=== PATIENT | female | born 1990 | race Caucasian/White ===

== ENCOUNTER 2017-12-16 18:26 | Inpatient (IN) ==
[2017-12-16] MEDS ORDERED: Acetaminophen 325 MG Tablet PO ONE (18:37)
[2017-12-16] MEDS ORDERED: Sod Chloride 0.9% Inj 800 ML IV.SIG SCH (18:45)
[2017-12-16 19:00] LABS: Baso % (Auto) 0.1 % (0.0-2.0); Eos % (Auto) 0.1 % (0.0-4.0); Hematocrit 37.8 % (35.0-46.0); Hemoglobin 12.8 gm/dL (11.6-15.3); Lymph % (Auto) 4.2 % (9.0-44.0); Mean Corpuscular HGB Conc 33.8 % (32.0-36.0); Mean Corpuscular Hemoglobin 28.6 pg (27.0-34.0); Mean Corpuscular Volume 84.5 fL (80.0-100.0); Mean Platelet Volume 8.4 fL (7.0-11.0); Mono # (Auto) 1.8 th/mm3 (0.0-0.9); Mono % (Auto) 7.6 % (0.0-8.0); Neut # (Auto) 20.5 th/mm3 (1.8-7.7); Platelet Count 225 th/mm3 (150-450); Red Blood Count 4.48 mil/mm3 (4.00-5.30); Red Cell Distribution Width 12.9 % (11.6-17.2); White Blood Count 23.3 th/mm3 (4.0-11.0)
[2017-12-16] MEDS: Sod Chloride 0.9% Inj 1,000 ML IV.SIG SCH (19:00)
--- NOTE | 2017-12-16 19:00 | XR ---
EXAM DATE: 12/16/2017 6:57 PM EDT AGE/SEX: 89 years / Female INDICATIONS: Fever, syncopal episode today CLINICAL DATA: This is the patient's initial encounter. Patient reports that signs and symptoms have been present for 1 day and indicates a pain score of Nonresponsive. MEDICAL/SURGICAL HISTORY: None. None. COMPARISON: No prior exams available for comparison. FINDINGS: Lungs are under aerated with minimal bibasilar parenchymal changes.. The cardiomediastinal contours are unremarkable. Osseous structures are intact. CONCLUSION: Under aerated without obvious consolidation or infiltrate. Electronically signed by: Brayan Murrieta MD 12/16/2017 6:58 PM EDT
--- NOTE | 2017-12-16 19:15 | ED ---
HPI General Chief complaint: Fever Stated complaint: Evac/Ams Time Seen by Provider: 12/16/17 18:28 Source: patient, family, EMS and RN notes reviewed Mode of arrival: EMS Limitations: altered mental status (confusion) History of Present Illness HPI narrative: 28yF presenting with fever and confusion. The patient's mother states that the patient has been complaining of "shaking chills" since yesterday ; she has been taking naproxen with some relief of symptoms. She told her mother yesterday that she was having abdominal pain but did not specify where in her abdomen was painful. The patient's father brought her to an urgent care center today, where she was noted to be confused and sleepy, and was sent by EMS to the ED for further eval. The patient is oriented x 3 but appears confused , denies any complaints currently. Related Data Home Medications Medication Instructions Recorded Confirmed No Known Home Medications 12/16/17 12/16/17 Allergies Allergy/AdvReac Type Severity Reaction Status Date / Time No Known Allergies Allergy Unverified 12/16/17 18:37 Review of Systems ROS Unobtainable ROS Unobtainable: unobtainable due to mental status (confusion) PMFSH History History Provided By: Patient Medical History Medical History Patient denies medical problems (Acute) Surgical History Surgical History No significant past surgical history (Acute) Family History Family History Other Family history normal Social History Social History Substance History: No History of Abuse Smoking Status: Never smoker How Often Do You Have a Drink Containing Alcohol: Never Recent Travel in [place] within the Last 8 Weeks: No Recent Out of Country Travel within the Last 8 Weeks: No Immunization History Tetanus Immunization: Unsure Exam Const Other: Appears confused, no acute distress HENIN Head: normocephalic and atraumatic Face and sinus: normal facial exam Other: No tonsillar hypertrophy or exudate No trismus or drooling Eyes General: appearance normal, both eyes and all related structures Other: Pupils 3 mm and reactive bilaterally Neck Other: No cervical adenopathy, able to touch chin to chest without difficulty Chest Chest: normal inspection of the chest Resp Effort & Inspection: normal respiratory effort Auscultation: no rhonchi and no wheezes Other: Lungs clear to auscultation bilaterally Cardio Rate: tachycardic Rhythm: regular rhythm GI Inspection: non-distended Palpation: soft and nontender Skin Other: Patient completely undressed and examined, no rashes or lesions noted Neuro Other: Sleepy but easily arousable to voice, oriented x 3, answers questions slowly but appropriately Motor strength 5/5 and sensation intact throughout Speech clear and fluent Appears confused Course Initial Documented Vital Signs Temperature 102.6 F H 12/16/17 18:29 Pulse Rate 129 H 12/16/17 18:29 Respiratory Rate 18 12/16/17 18:29 Blood Pressure 120/75 12/16/17 18:29 Pulse Oximetry 99 12/16/17 18:29 Last Documented Vital Signs Temperature 102.9 F H 12/17/17 12:56 Pulse Rate 118 H 12/17/17 12:56 Respiratory Rate 16 12/17/17 12:56 Blood Pressure 101/64 12/17/17 12:00 Pulse Oximetry 99 12/17/17 08:00 Sign Out Sign Out Data: Patient Sign Out occurred on 12/16/17 at 19:33. Patient's care was discussed, and care was transferred from Annie Villanueva DO to Franky Gordon DO. Sign Out Comment: 28yF presenting with sepsis of uncertain etiology; pending labs and CT scans Last updated by Annie Villanueva DO at 12/16/17 19:24 Medical Decision Making MDM Narrative Medical decision making narrative: Assessment: 28yF presenting with fever and confusion Plan: EKG and monitor IV fluids Sepsis workup (labs, cultures, lactate) UA and culture, UCG CXR CTH and abd/pelvis Unremarkable CT abdomen and pelvis. White count of 23.3. Creatinine 1.25. UA revealed signs of urinary tract infection the patient has bilateral CVA tenderness. She denies urinary symptoms. Findings are suggestive of pyelonephritis. Fever improved. She is hemodynamically stable with a blood pressure 120/75. Still tachycardic. Fluids are given. Not appearing septic. 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 POC Test Results POC Urine Results: Negative Lab Data Result diagrams: 12/17/17 03:40 12/17/17 03:40 Lab Results 12/16/17 12/16/17 12/16/17 Range/Units 18:40 18:40 18:40 WBC 23.3 H (4.0-11.0) th/mm3 RBC 4.48 (4.00-5.30) mil/mm3 Hgb 12.8 (11.6-15.3) gm/dL Hct 37.8 (35.0-46.0) % MCV 84.5 (80.0-100.0) fL MCH 28.6 (27.0-34.0) pg MCHC 33.8 (32.0-36.0) % RDW 12.9 (11.6-17.2) % Plt Count 225 (150-450) th/mm3 MPV 8.4 (7.0-11.0) fL Neut % (Auto) 88.0 H (16.0-70.0) % Lymph % (Auto) 4.2 L (9.0-44.0) % Rooks % (Auto) 7.6 (0.0-8.0) % Eos % (Auto) 0.1 (0.0-4.0) % Baso % (Auto) 0.1 (0.0-2.0) % Neut # (Auto) 20.5 H (1.8-7.7) th/mm3 Lymph # (Auto) 1.0 (1.0-4.8) th/mm3 Rooks # (Auto) 1.8 H (0.0-0.9) th/mm3 Eos # (Auto) 0.0 (0.0-0.4) th/mm3 Baso # (Auto) 0.0 (0.0-0.2) th/mm3 WBC Differential . Differential Comment Auto diff final Sodium 140 (136-145) meq/L Potassium 3.5 (3.5-5.1) meq/L Chloride 110 H (98-107) meq/L Carbon Dioxide 21.3 (21.0-32.0) meq/L Anion Gap 9 (5-15) meq/L BUN 17 (7-18) mg/dL Creatinine 1.25 H (0.50-1.00) mg/dL Estimated GFR 37 L (>89) mL/min POC Glucose (68-110) mg/dl Random Glucose 139 H (74-106) mg/dL Lactic Acid 1.2 (0.4-2.0) mmol/L Calcium 8.1 L (8.5-10.1) mg/dL Prot Corrected Calcium (8.5-10.1) mg/dL Magnesium 1.9 (1.5-2.5) mg/dL Total Bilirubin 0.3 (0.2-1.0) mg/dL AST 22 (15-37) U/L ALT 22 (10-53) U/L Alkaline Phosphatase 68 (45-117) U/L Total Protein 7.5 (6.4-8.2) g/dL Albumin 3.2 L (3.4-5.0) g/dL Lipase 79 (73-393) U/L Urine Color (Yellw/Straw) Urine Clarity (Clear) Urine pH (5.0-8.5) Ur Specific [place] (1.002-1.035) Urine Protein (Neg-Trace) mg/dL Urine Glucose (UA) (Negative) mg/dL Urine Ketones (Negative) mg/dL Urine Occult Blood (Negative) Urine Nitrate (Negative) Urine Bilirubin (Negative) Urine Urobilinogen (Less than 2) mg/dL Ur Leukocyte Esterase (Negative) Urine RBC (0-3) /hpf Urine WBC (0-5) /hpf Urine WBC Clumps (None) Ur Squamous Epith Cells (0-5) /hpf Urine Bacteria (None) /hpf Urine Mucus (Occasional) /lpf Micro UA Comment Urine Culture Comments 12/16/17 12/16/17 12/17/17 Range/Units 18:45 18:51 03:40 WBC 17.0 H (4.0-11.0) th/mm3 RBC 3.75 L (4.00-5.30) mil/mm3 Hgb 10.6 L D (11.6-15.3) gm/dL Hct 32.6 L (35.0-46.0) % MCV 87.0 (80.0-100.0) fL MCH 28.4 (27.0-34.0) pg MCHC 32.6 (32.0-36.0) % RDW 13.0 (11.6-17.2) % Plt Count 172 (150-450) th/mm3 MPV 8.3 (7.0-11.0) fL Neut % (Auto) 77.9 H (16.0-70.0) % Lymph % (Auto) 14.1 (9.0-44.0) % Rooks % (Auto) 7.8 (0.0-8.0) % Eos % (Auto) 0.0 (0.0-4.0) % Baso % (Auto) 0.2 (0.0-2.0) % Neut # (Auto) 13.3 H (1.8-7.7) th/mm3 Lymph # (Auto) 2.4 (1.0-4.8) th/mm3 Rooks # (Auto) 1.3 H (0.0-0.9) th/mm3 Eos # (Auto) 0.0 (0.0-0.4) th/mm3 Baso # (Auto) 0.0 (0.0-0.2) th/mm3 WBC Differential . Differential Comment Auto diff final Sodium (136-145) meq/L Potassium (3.5-5.1) meq/L Chloride (98-107) meq/L Carbon Dioxide (21.0-32.0) meq/L Anion Gap (5-15) meq/L BUN (7-18) mg/dL Creatinine (0.50-1.00) mg/dL Estimated GFR (>89) mL/min POC Glucose 129 H (68-110) mg/dl Random Glucose (74-106) mg/dL Lactic Acid (0.4-2.0) mmol/L Calcium (8.5-10.1) mg/dL Prot Corrected Calcium (8.5-10.1) mg/dL Magnesium (1.5-2.5) mg/dL Total Bilirubin (0.2-1.0) mg/dL AST (15-37) U/L ALT (10-53) U/L Alkaline Phosphatase (45-117) U/L Total Protein (6.4-8.2) g/dL Albumin (3.4-5.0) g/dL Lipase (73-393) U/L Urine Color Yellow (Yellw/Straw) Urine Clarity Cloudy H (Clear) Urine pH 5.0 (5.0-8.5) Ur Specific [place] 1.016 (1.002-1.035) Urine Protein 100 H (Neg-Trace) mg/dL Urine Glucose (UA) Negative (Negative) mg/dL Urine Ketones Negative (Negative) mg/dL Urine Occult Blood Moderate H (Negative) Urine Nitrate Positive H (Negative) Urine Bilirubin Negative (Negative) Urine Urobilinogen 2.0 H (Less than 2) mg/dL Ur Leukocyte Esterase Moderate H (Negative) Urine RBC 2 (0-3) /hpf Urine WBC 110 H (0-5) /hpf Urine WBC Clumps Rare H (None) Ur Squamous Epith Cells 1 (0-5) /hpf Urine Bacteria Many H (None) /hpf Urine Mucus Few H (Occasional) /lpf Micro UA Comment Cath-culture ind Urine Culture Comments Cath-cult indicated 12/17/17 Range/Units 03:40 WBC (4.0-11.0) th/mm3 RBC (4.00-5.30) mil/mm3 Hgb (11.6-15.3) gm/dL Hct (35.0-46.0) % MCV (80.0-100.0) fL MCH (27.0-34.0) pg MCHC (32.0-36.0) % RDW (11.6-17.2) % Plt Count (150-450) th/mm3 MPV (7.0-11.0) fL Neut % (Auto) (16.0-70.0) % Lymph % (Auto) (9.0-44.0) % Rooks % (Auto) (0.0-8.0) % Eos % (Auto) (0.0-4.0) % Baso % (Auto) (0.0-2.0) % Neut # (Auto) (1.8-7.7) th/mm3 Lymph # (Auto) (1.0-4.8) th/mm3 Rooks # (Auto) (0.0-0.9) th/mm3 Eos # (Auto) (0.0-0.4) th/mm3 Baso # (Auto) (0.0-0.2) th/mm3 WBC Differential Differential Comment Sodium 144 (136-145) meq/L Potassium 3.7 (3.5-5.1) meq/L Chloride 113 H (98-107) meq/L Carbon Dioxide 22.2 (21.0-32.0) meq/L Anion Gap 9 (5-15) meq/L BUN 11 (7-18) mg/dL Creatinine 0.82 (0.50-1.00) mg/dL Estimated GFR 83 L (>89) mL/min POC Glucose (68-110) mg/dl Random Glucose 129 H (74-106) mg/dL Lactic Acid (0.4-2.0) mmol/L Calcium 7.0 L* D (8.5-10.1) mg/dL Prot Corrected Calcium 7.6 L (8.5-10.1) mg/dL Magnesium (1.5-2.5) mg/dL Total Bilirubin (0.2-1.0) mg/dL AST (15-37) U/L ALT (10-53) U/L Alkaline Phosphatase (45-117) U/L Total Protein 6.0 L D (6.4-8.2) g/dL Albumin (3.4-5.0) g/dL Lipase (73-393) U/L Urine Color (Yellw/Straw) Urine Clarity (Clear) Urine pH (5.0-8.5) Ur Specific [place] (1.002-1.035) Urine Protein (Neg-Trace) mg/dL Urine Glucose (UA) (Negative) mg/dL Urine Ketones (Negative) mg/dL Urine Occult Blood (Negative) Urine Nitrate (Negative) Urine Bilirubin (Negative) Urine Urobilinogen (Less than 2) mg/dL Ur Leukocyte Esterase (Negative) Urine RBC (0-3) /hpf Urine WBC (0-5) /hpf Urine WBC Clumps (None) Ur Squamous Epith Cells (0-5) /hpf Urine Bacteria (None) /hpf Urine Mucus (Occasional) /lpf Micro UA Comment Urine Culture Comments Imaging Data Radiologist's impression: Chest X-Ray 12/16/17 18:37 CONCLUSION: Under aerated without obvious consolidation or infiltrate. Head CT 12/16/17 18:37 CONCLUSION: 1. Negative for acute process. 2. Inflammatory process such as encephalitis and meningitis cannot be excluded. . Abdomen/Pelvis CT 12/16/17 19:05 CONCLUSION: 1. Gallstones in a benign-appearing gallbladder 2. There is no renal stone or obstruction 3. Do not see inflammatory change of the abdomen 4. Lack of intravenous contrast makes detection of subtle inflammatory changes including pyelonephritis very difficult. ECG Data Attestation: I personally reviewed and interpreted this ECG as follows: Interpretation: Rate: 140 BPM Rhythm: Sinus [place]: Normal Intervals: Normal intervals, no blocks, QTc 365 ms Q waves: III T waves: Inverted in III ST segments: No elevations or depressions Impression: Sinus tachycardia, no previous EKG available for comparison. Discharge Plan Discharge Disposition Patient Disposition: 30 Still Patient Discharge Condition Condition: Good Discharge Details Diagnosis: Pyelonephritis, Toxic metabolic encephalopathy, Sepsis Physicians Team ED Provider: Franky Gordon Primary Care Provider: UNKNOWN, Attending Provider: Roni Melchor Status ED Status: Left Department Discharge Information Discharge Date/Time: 12/16/17 21:23
[2017-12-16 19:25] LABS: Alanine Aminotransferase 22 U/L (10-53); Albumin 3.2 g/dL (3.4-5.0); Anion Gap 9 meq/L (5-15); Aspartate Aminotransferase 22 U/L (15-37); Blood Urea Nitrogen 17 mg/dL (7-18); Calcium 8.1 mg/dL (8.5-10.1); Carbon Dioxide 21.3 meq/L (21.0-32.0); Chloride 110 meq/L (98-107); Glomerular Filtration Rate 37 mL/min (>89); Glucose,Random 139 mg/dL (74-106); Lipase 79 U/L (73-393); Magnesium 1.9 mg/dL (1.5-2.5); Potassium 3.5 meq/L (3.5-5.1); Sodium 140 meq/L (136-145)
[2017-12-16 19:28] LABS: Alkaline Phosphatase 68 U/L (45-117); Total Protein 7.5 g/dL (6.4-8.2)
[2017-12-16 19:30] LABS: Bacteria,Urine Many /hpf; Bilirubin,Urine Negative (Negative); Clarity,Urine Cloudy (Clear); Color,Urine Yellow (Yellw/Straw); Glucose,Urine (UA) Negative (Negative); Leukocyte Esterase,Urine Moderate (Negative); Mucus,Urine Few /lpf (Occasional); Nitrite,Urine Positive (Negative); Specific Gravity,Urine 1.016 (1.002-1.035); Squamous Epithelial Cell,Urine 1 /hpf (0-5)
--- NOTE | 2017-12-16 19:33 | CT ---
EXAM DATE: 12/16/2017 7:31 PM EDT AGE/SEX: 89 years / Female INDICATIONS: Altered mental status. Fever. CLINICAL DATA: This is the patient's initial encounter. Patient reports that signs and symptoms have been present for 1 day and indicates a pain score of 0/10. MEDICAL/SURGICAL HISTORY: None. None. RADIATION DOSE: 56.35 CTDI (mGy) COMPARISON: No prior exams available for comparison. TECHNIQUE: CT of the head without contrast. Using automated exposure control and adjustment of the mA and/or kV according to patient size, radiation dose was kept as low as reasonably achievable to ob tain optimal diagnostic quality images. DICOM format image data is available electronically for revi ew and comparison. FINDINGS: Cerebrum: The ventricles are normal for age. No evidence of midline shift, mass lesion, hemorrhage or acute infarction. No extraaxial fluid collections are seen. Posterior Fossa: The cerebellum and brainstem are intact. The 4th ventricle is midline. The cerebe llopontine angle is unremarkable. Extracranial: The visualized portion of the orbits is intact. Skull: The calvaria is intact. No evidence of skull fracture. CONCLUSION: 1. Negative for acute process. 2. Inflammatory process such as encephalitis and meningitis cannot be excluded. . Electronically signed by: Brayan Murrieta MD 12/16/2017 7:32 PM EDT
--- NOTE | 2017-12-16 19:38 | CT ---
EXAM DATE: 12/16/2017 7:34 PM EDT AGE/SEX: 89 years / Female INDICATIONS: Diffuse abdominal pain and fever. CLINICAL DATA: This is the patient's initial encounter. Patient reports that signs and symptoms have been present for 1 day and indicates a pain score of 4/10. MEDICAL/SURGICAL HISTORY: None. None. RADIATION DOSE: 6.64 CTDI (mGy) COMPARISON: No prior exams available for comparison. TECHNIQUE: Multiple contiguous axial images were obtained through the abdomen. Images were obtained using multiple row detector helical technique. Using automated exposure control and adjustment of the mA and/or kV according to patient size, radiation dose was kept as low as reasonably achievable to o btain optimal diagnostic quality images. DICOM format image data is available electronically for rev iew and comparison. FINDINGS: Lower Lungs: The visualized lower lungs are clear. Liver: The liver has a homogeneous density without space-occupying lesion. There is no dilation of th e biliary tree. Gallstones in a benign-appearing gallbladder without evidence for acute cholecystitis . Spleen: Homogeneous density without enlargement. Pancreas: Unremarkable without mass or calcification. Kidneys: Normal in size and shape. No evidence of mass or hydronephrosis. Adrenal Glands: Unremarkable. Aorta: The aorta and proximal iliac vessels are grossly unremarkable without aneurysmal dilation. Bowel/Mesentery: There are no inflammatory changes in the mesentery. Minimal diverticuli sigmoid col on without diverticulitis. Abdominal Wall: Intact. Retroperitoneum: No evidence of adenopathy in the retrocrural, para-aortic, or deep pelvic regions. Bladder: Contours are smooth. Reproductive Organs: No abnormal masses or calcifications seen. Inguinal: The inguinal region is unremarkable without evidence of adenopathy. Bony Structures: Degenerative changes in the lower lumbar spine and both SI joints. CONCLUSION: 1. Gallstones in a benign-appearing gallbladder 2. There is no renal stone or obstruction 3. Do not see inflammatory change of the abdomen 4. Lack of intravenous contrast makes detection of subtle inflammatory changes including pyelonephri tis very difficult. Electronically signed by: Brayan Murrieta MD 12/16/2017 7:36 PM EDT
[2017-12-16] MEDS: Sod Chloride 0.9% Inj 1,000 ML IV.CONT SCH (20:52)
--- NOTE | 2017-12-16 21:30 | P.HPIM ---
History of Present Illness Primary Care Physician: UNKNOWN History of Present Illness: 28 y/o female with a no medical history presented to the ED with complaints of lower abdominal pain and lethargy. Mom is at bedside who is a CVICU Nurse here at [facility]. Patient states she has been having fevers and chills for 2 days and today she just became more lethargic. She complains of sharp lower abdominal pain with radiation to her back, no nausea or vomiting noted. Denies dysuria. Still feverish and having chills on exam. Inpatient Certification: I certify that the inpatient services were ordered in accordance with Medicare regulations governing the order. This includes certification that hospital inpatient services are reasonable and necessary and in the case of services not specified as inpatient-only under 42 CFR 419.22(n), that they are appropriately provided as inpatient services in accordance to with the 2-midnight benchmark under 43 CFR 412.3(e) Estimated Total Length of Stay (Days): 2 Plans for Post Hospital Care: Home Review of Systems All other systems reviewed negative except as stated in HPI [facility] - History History Provided By: Patient - Medical History Medical History: Medical History (Last Updated 12/16/17 @ 21:23 by LAY Coronel) No significant past surgical history Patient denies medical problems - Surgical History Surgical History: Surgical History (Last Updated 12/16/17 @ 21:23 by LAY Coronel) No significant past surgical history - Family History Family History: Family History (Last Updated 12/16/17 @ 21:23 by LAY Coronel) Other Family history normal - Tobacco History Smoking Status: Never smoker - Alcohol History How Often Do You Have a Drink Containing Alcohol: Never - Substance Use History Substance History: No History of Abuse - Travel History Recent Travel in the [place] Within the Last 8 Weeks: No Recent Travel Out of the Country Within the Last 8 Weeks: No - Immunization History Tetanus Immunization: Unsure Medications and Allergies Active Medications: Active Medications Acetaminophen (Tylenol) 650 mg PO Q4H PRN PRN Reason: Temp > 100.4 Sodium Chloride (Ns Inj) 1,000 mls @ 0 mls/hr IV.SIG .Q0M [facility] Last Admin: 12/16/17 19:00 Dose: 999 mls/hr Sodium Chloride (Ns Inj) 800 mls @ 0 mls/hr IV.SIG .Q0M CORRINE Last Admin: 12/16/17 19:03 Dose: 999 mls/hr Ceftriaxone Sodium 1,000 mg/ (Sodium Chloride) 100 mls @ 200 mls/hr IV.SIG Q24H [facility] Sodium Chloride (Ns Inj) 1,000 mls @ 100 mls/hr IV.CONT .Q10H [facility]RINE Last Admin: 12/16/17 20:52 Dose: 100 mls/hr Ondansetron HCl (Zofran Inj) 4 mg IV.PUSH Q6H PRN PRN Reason: NAUSEA OR VOMITING Allergies Allergy/AdvReac Type Severity Reaction Status Date / Time No Known Allergies Allergy Unverified 12/16/17 18:37 Home Medications Medication Instructions Recorded Confirmed Type No Known Home Medications 12/16/17 12/16/17 History Exam Vital signs: Vital Signs 12/16/17 18:29 12/16/17 18:47 12/16/17 19:55 Temperature 102.6 F H 100.0 F H Pulse Rate 129 H 123 H Respiratory Rate 18 16 Blood Pressure 120/75 114/68 Pulse Oximetry 99 100 99 Intake & Output 12/16/17 12/16/17 12/17/17 06:59 18:59 06:59 Weight 58.967 kg Narrative: GENERAL: This is a well-nourished, well-developed patient, who appears sleepy. SKIN: Warm, dry, intact, no ecchymosis or open lesions EYES: Pupils equal round and reactive, no scleral edema or drainage CARDIOVASCULAR: Regular rate and rhythm without murmurs, gallops, or rubs. RESPIRATORY: Clear to auscultation. Breath sounds equal bilaterally. No wheezes , rales, or rhonchi. GASTROINTESTINAL: Abdomen soft, lower abdominal tenderness, nondistended. Normal active bowel sounds positive CVA tenderness left greater than right MUSCULOSKELETAL: Extremities without clubbing, cyanosis, or edema. NEURO: Sleepy & Oriented x4 to person, place, time, situation. Moves all ext x4 Results - Labs CBC & Chem 7: 12/16/17 18:40 12/16/17 18:40 Labs: Short CBC 12/16/17 Range/Units 18:40 WBC 23.3 H (4.0-11.0) th/mm3 Hgb 12.8 (11.6-15.3) gm/dL Hct 37.8 (35.0-46.0) % Plt Count 225 (150-450) th/mm3 BMP 12/16/17 18:40 Sodium 140 Potassium 3.5 Chloride 110 H Carbon Dioxide 21.3 BUN 17 Creatinine 1.25 H Calcium 8.1 L Liver Function 12/16/17 Range/Units 18:40 Total Bilirubin 0.3 (0.2-1.0) mg/dL AST 22 (15-37) U/L ALT 22 (10-53) U/L Alkaline Phosphatase 68 (45-117) U/L Albumin 3.2 L (3.4-5.0) g/dL Urine 12/16/17 Range/Units 18:45 Urine Color Yellow (Yellw/Straw) Urine Clarity Cloudy H (Clear) Urine pH 5.0 (5.0-8.5) Ur Specific [place] 1.016 (1.002-1.035) Urine Protein 100 H (Neg-Trace) mg/dL Urine Glucose (UA) Negative (Negative) mg/dL - Imaging Impressions Chest X-Ray 12/16/17 18:37 CONCLUSION: Under aerated without obvious consolidation or infiltrate. Head CT 12/16/17 18:37 CONCLUSION: 1. Negative for acute process. 2. Inflammatory process such as encephalitis and meningitis cannot be excluded. . Abdomen/Pelvis CT 12/16/17 19:05 CONCLUSION: 1. Gallstones in a benign-appearing gallbladder 2. There is no renal stone or obstruction 3. Do not see inflammatory change of the abdomen 4. Lack of intravenous contrast makes detection of subtle inflammatory changes including pyelonephritis very difficult. Caprini VTE Risk Assessment Caprini VTE Risk Assessment: No/Low Risk (score <= 1) Caprini Risk Assessment Model: Point Value = 1 Point Value = 2 Point Value = 3 Point Value = 5 Age 41-60 Minor surgery BMI > 25 kg/m2 Swollen legs Varicose veins or History of unexplained or recurrent spontaneous Oral contraceptives or hormone replacement Sepsis (< 1 month) Serious lung disease, including pneumonia (< 1 month) Abnormal pulmonary function Acute myocardial infarction Congestive heart failure (< 1 month) History of inflammatory bowel disease Medical patient at bed rest Age 61-74 Arthroscopic surgery Major open surgery (> 45 min) Laparoscopic surgery (> 45 min) Malignancy Confined to bed (> 72 hours) Immobilizing plaster cast Central venous access Age >= 75 History of VTE Family history of VTE Factor V Leiden Prothrombin [id number] Lupus anticoagulant Anticardiolipin antibodies Elevated serum homocysteine Heparin-induced thrombocytopenia Other congenital or acquired thrombophilia Stroke (< 1 month) Elective arthroplasty Hip, pelvis, or leg fracture Acute spinal cord injury (< 1 month) Prophylaxis Regimen: Total Risk Factor Score Risk Level Prophylaxis Regimen 0-1 Low Early ambulation 2 Moderate Order ONE of the following: *Sequential Compression Device (SCD) *Heparin 5000 units SQ BID 3-4 Higher Order ONE of the following medications: *Heparin 5000 units SQ TID *Enoxaparin/Lovenox 40 mg SQ daily (WT < 150 kg, CrCl > 30 mL/min) *Enoxaparin/Lovenox 30 mg SQ daily (WT < 150 kg, CrCl > 10-29 mL/min) *Enoxaparin/Lovenox 30 mg SQ BID (WT < 150 kg, CrCl > 30 mL/min) AND/OR *Sequential Compression Device (SCD) 5 or more Highest Order ONE of the following medications: *Heparin 5000 units SQ TID (Preferred with Epidurals) *Enoxaparin/Lovenox 40 mg SQ daily (WT < 150 kg, CrCl > 30 mL/min) *Enoxaparin/Lovenox 30 mg SQ daily (WT < 150 kg, CrCl > 10-29 mL/min) *Enoxaparin/Lovenox 30 mg SQ BID (WT < 150 kg, CrCl > 30 mL/min) AND *Sequential Compression Device (SCD) Assessment and Plan - Plan Sepsis, pyelonephritis, WBC 23.3, temp 2.6, heart rate 129, lactic acid 1.2, likely E. coli Abnormal UA shows moderate leukocyte esterase, positive nitrates blood elevated protein and increased bacteria -Urine culture pending -Rocephin IV daily -CBC in AM -Tylenol as needed Acute kidney injury, creatinine 1.2 -Continue IVF as above -Trend creatinine -Avoid nephrotoxins DVT prophylaxis: SCDs Discussed Condition With: Patient and RN
[2017-12-17 04:25] LABS: Baso % (Auto) 0.2 % (0.0-2.0); Hematocrit 32.6 % (35.0-46.0); Hemoglobin 10.6 gm/dL (11.6-15.3); Lymph # (Auto) 2.4 th/mm3 (1.0-4.8); Lymph % (Auto) 14.1 % (9.0-44.0); Mean Corpuscular HGB Conc 32.6 % (32.0-36.0); Mean Corpuscular Hemoglobin 28.4 pg (27.0-34.0); Mean Platelet Volume 8.3 fL (7.0-11.0); Mono # (Auto) 1.3 th/mm3 (0.0-0.9); Mono % (Auto) 7.8 % (0.0-8.0); Neut # (Auto) 13.3 th/mm3 (1.8-7.7); Neut % (Auto) 77.9 % (16.0-70.0); Platelet Count 172 th/mm3 (150-450); Red Blood Count 3.75 mil/mm3 (4.00-5.30)
[2017-12-17 05:24] LABS: Carbon Dioxide 22.2 meq/L (21.0-32.0); Potassium 3.7 meq/L (3.5-5.1)
[2017-12-17] MEDS: Sod Chloride 0.9% Inj 1,000 ML IV.CONT SCH ×2 (06:29→20:52)
--- NOTE | 2017-12-17 12:55 | ECG ---
Date Performed: 12/16/2017 Time Performed: 18:30:23 PTAGE: 89 years EKG: SINUS TACHYCARDIA NONSPECIFIC T-WAVE ABNORMALITY ABNORMAL RHYTHM ECG NO PREVIOUS TRACING DOCTOR: Virgil Ferro Interpretating Date/Time 12/17/2017 12:54:08
[2017-12-17] MEDS ORDERED: Sod Chloride 0.9% Inj 1,000 ML IV.SIG ONE (12:56)
[2017-12-17] MEDS ORDERED: Calcium Chloride Inj 1 GM/10 ML Syringe IV.PUSH ONE (12:57)
--- NOTE | 2017-12-17 13:55 | P.PNIM ---
Subjective Interval history: Patient reports continued left flank pain, fever today 102. Dull frontal headache. She says she has headaches occasionally, this is not severe but worse than usual. Physical Exam Vital signs: Vital Signs 12/16/17 18:29 12/16/17 18:47 12/16/17 19:55 Temperature 102.6 F H 100.0 F H Pulse Rate 129 H 123 H Respiratory Rate 18 16 Blood Pressure 120/75 114/68 Pulse Oximetry 99 100 99 12/16/17 20:00 12/16/17 21:35 12/16/17 22:00 Temperature 99.2 F Pulse Rate 106 H 108 H Respiratory Rate 16 Blood Pressure 90/52 L Pulse Oximetry 99 99 12/17/17 00:00 12/17/17 04:00 12/17/17 08:00 Temperature 98.7 F 98.5 F 99 F Pulse Rate 92 H 88 89 Respiratory Rate 14 14 Blood Pressure 87/56 L 91/56 L 98/62 L Pulse Oximetry 98 98 99 12/17/17 12:00 12/17/17 12:56 Temperature 101.8 F H 102.9 F H Pulse Rate 126 H 118 H Respiratory Rate 16 16 Blood Pressure 101/64 Pulse Oximetry Intake & Output 12/16/17 12/17/17 12/17/17 18:59 06:59 18:59 Intake Total 3140 / 3140 Balance 3140 / 3140 Weight 58.967 kg 59.5 kg Intake: IV 2900 / 2900 NS Inj 1,000 ML @ 100 mls/hr IV 1000 / 1000 .CONT .Q10H CORRINE Rx#:[id number] NS Inj 800 ML @ Wide Open IV. 1800 / 1800 SIG .Q0M CORRINE Rx#:[id number] Rocephin Inj 1,000 MG In NS Inj 100 / 100 100 ML @ 200 mls/hr IV.SIG ONCE ONE Rx#:[id number] Oral 240 / 240 Other: # Voids 2 # Bowel Movements 1 Narrative: GENERAL: Patient sitting up in bed. Appears comfortable. SKIN: Warm and dry. HEAD: Normocephalic. EYES: No scleral icterus. No injection or drainage. NECK: Supple, trachea midline. No JVD. No meningismal signs. CARDIOVASCULAR: Regular rate and rhythm without murmurs, gallops, or rubs. RESPIRATORY: Breath sounds equal bilaterally. No accessory muscle use. GASTROINTESTINAL: Abdomen soft, non-tender, nondistended. MUSCULOSKELETAL: No cyanosis, or edema. BACK: Nontender without obvious deformity. Positive left CVA tenderness. - Urinary Catheter Management Straight Cath placed during this visit: yes Reason for continuing: Not indwelling catheter Insertion date: 12/16/17 Insertion time: 18:45 Results - Labs CBC & Chem 7: 12/17/17 03:40 12/17/17 03:40 Laboratory Results - last 24 hr 12/16/17 12/16/17 12/16/17 18:40 18:40 18:40 WBC 23.3 H RBC 4.48 Hgb 12.8 Hct 37.8 MCV 84.5 MCH 28.6 MCHC 33.8 RDW 12.9 Plt Count 225 MPV 8.4 Neut % (Auto) 88.0 H Lymph % (Auto) 4.2 L [place] % (Auto) 7.6 Eos % (Auto) 0.1 Baso % (Auto) 0.1 Neut # (Auto) 20.5 H Lymph # (Auto) 1.0 [place] # (Auto) 1.8 H Eos # (Auto) 0.0 Baso # (Auto) 0.0 WBC Differential . Differential Comment Auto diff final Sodium 140 Potassium 3.5 Chloride 110 H Carbon Dioxide 21.3 Anion Gap 9 BUN 17 Creatinine 1.25 H Estimated GFR 37 L POC Glucose Random Glucose 139 H Lactic Acid 1.2 Calcium 8.1 L Prot Corrected Calcium Magnesium 1.9 Total Bilirubin 0.3 AST 22 ALT 22 Alkaline Phosphatase 68 Total Protein 7.5 Albumin 3.2 L Lipase 79 Urine Color Urine Clarity Urine pH Ur Specific [place] Urine Protein Urine Glucose (UA) Urine Ketones Urine Occult Blood Urine Nitrate Urine Bilirubin Urine Urobilinogen Ur Leukocyte Esterase Urine RBC Urine WBC Urine WBC Clumps Ur Squamous Epith Cells Urine Bacteria Urine Mucus Micro UA Comment Urine Culture Comments 12/16/17 12/16/17 12/17/17 18:45 18:51 03:40 WBC 17.0 H RBC 3.75 L Hgb 10.6 L D Hct 32.6 L MCV 87.0 MCH 28.4 MCHC 32.6 RDW 13.0 Plt Count 172 MPV 8.3 Neut % (Auto) 77.9 H Lymph % (Auto) 14.1 [place] % (Auto) 7.8 Eos % (Auto) 0.0 Baso % (Auto) 0.2 Neut # (Auto) 13.3 H Lymph # (Auto) 2.4 [place] # (Auto) 1.3 H Eos # (Auto) 0.0 Baso # (Auto) 0.0 WBC Differential . Differential Comment Auto diff final Sodium Potassium Chloride Carbon Dioxide Anion Gap BUN Creatinine Estimated GFR POC Glucose 129 H Random Glucose Lactic Acid Calcium Prot Corrected Calcium Magnesium Total Bilirubin AST ALT Alkaline Phosphatase Total Protein Albumin Lipase Urine Color Yellow Urine Clarity Cloudy H Urine pH 5.0 Ur Specific [place] 1.016 Urine Protein 100 H Urine Glucose (UA) Negative Urine Ketones Negative Urine Occult Blood Moderate H Urine Nitrate Positive H Urine Bilirubin Negative Urine Urobilinogen 2.0 H Ur Leukocyte Esterase Moderate H Urine RBC 2 Urine WBC 110 H Urine WBC Clumps Rare H Ur Squamous Epith Cells 1 Urine Bacteria Many H Urine Mucus Few H Micro UA Comment Cath-culture ind Urine Culture Comments Cath-cult indicated 12/17/17 03:40 WBC RBC Hgb Hct MCV MCH MCHC RDW Plt Count MPV Neut % (Auto) Lymph % (Auto) [place] % (Auto) Eos % (Auto) Baso % (Auto) Neut # (Auto) Lymph # (Auto) [place] # (Auto) Eos # (Auto) Baso # (Auto) WBC Differential Differential Comment Sodium 144 Potassium 3.7 Chloride 113 H Carbon Dioxide 22.2 Anion Gap 9 BUN 11 Creatinine 0.82 Estimated GFR 83 L POC Glucose Random Glucose 129 H Lactic Acid Calcium 7.0 L* D Prot Corrected Calcium 7.6 L Magnesium Total Bilirubin AST ALT Alkaline Phosphatase Total Protein 6.0 L D Albumin Lipase Urine Color Urine Clarity Urine pH Ur Specific [place] Urine Protein Urine Glucose (UA) Urine Ketones Urine Occult Blood Urine Nitrate Urine Bilirubin Urine Urobilinogen Ur Leukocyte Esterase Urine RBC Urine WBC Urine WBC Clumps Ur Squamous Epith Cells Urine Bacteria Urine Mucus Micro UA Comment Urine Culture Comments Microbiology 12/16/17 18:45 Catheterized Urine Urine Culture - Preliminary gram negative rods 12/16/17 18:45 Blood - Peripheral Aerobic Blood Culture - Preliminary No growth in 1 day 12/16/17 18:45 Blood - Peripheral Anaerobic Blood Culture - Preliminary No growth in 1 day 12/16/17 18:40 Blood - Peripheral Aerobic Blood Culture - Preliminary No growth in 1 day 12/16/17 18:40 Blood - Peripheral Anaerobic Blood Culture - Preliminary No growth in 1 day - Imaging Impressions Chest X-Ray 12/16/17 18:37 CONCLUSION: Under aerated without obvious consolidation or infiltrate. Head CT 12/16/17 18:37 CONCLUSION: 1. Negative for acute process. 2. Inflammatory process such as encephalitis and meningitis cannot be excluded. . Abdomen/Pelvis CT 12/16/17 19:05 CONCLUSION: 1. Gallstones in a benign-appearing gallbladder 2. There is no renal stone or obstruction 3. Do not see inflammatory change of the abdomen 4. Lack of intravenous contrast makes detection of subtle inflammatory changes including pyelonephritis very difficult. Assessment and Plan - Plan ///Severe sepsis on admission = pyelonephritis, WBC 23.3, temp 2.6, heart rate 129, lactic acid 1.2, acute kidney injury likely E. coli Abnormal UA shows moderate leukocyte esterase, positive nitrates blood elevated protein and increased bacteria -Urine culture pending -Rocephin IV daily -CBC in AM -Tylenol as needed = 12/17. With repeat fever, tachycardia. Will IV fluid bolus, switch antibiotics to Zosyn. //Acute kidney injury, creatinine 1.2 -Continue IVF as above -Trend creatinine -Avoid nephrotoxins = Resolved 0.8 creatinine with IV fluids. Continue to monitor. //Hypokalemia. Likely dilutional. Will replace and monitor. DVT prophylaxis: SCDs Discharge Planning: Pending improvement. Urine culture pending.
[2017-12-17] MEDS: Piperacil/Tazo 3.375 GM Premix 50 ML IV.SIG SCH ×2 (14:28→21:10)
[2017-12-17] MEDS: Acetaminophen 325 MG Tablet PO PRN (18:28)
[2017-12-18] MEDS: Acetaminophen 325 MG Tablet PO PRN ×2 (03:01→16:07)
[2017-12-18] MEDS: Sod Chloride 0.9% Inj 1,000 ML IV.CONT SCH ×3 (03:03→23:15)
[2017-12-18] MEDS: Piperacil/Tazo 3.375 GM Premix 50 ML IV.SIG SCH ×4 (03:03→21:32)
[2017-12-18 04:49] LABS: Baso % (Auto) 0.3 % (0.0-2.0); Hematocrit 34.9 % (35.0-46.0); Hemoglobin 11.3 gm/dL (11.6-15.3); Lymph # (Auto) 2.1 th/mm3 (1.0-4.8); Lymph % (Auto) 13.7 % (9.0-44.0); Mean Corpuscular HGB Conc 32.4 % (32.0-36.0); Mean Corpuscular Hemoglobin 27.8 pg (27.0-34.0); Mean Corpuscular Volume 85.9 fL (80.0-100.0); Mean Platelet Volume 8.3 fL (7.0-11.0); Mono # (Auto) 1.6 th/mm3 (0.0-0.9); Mono % (Auto) 10.5 % (0.0-8.0); Neut # (Auto) 11.3 th/mm3 (1.8-7.7); Neut % (Auto) 75.5 % (16.0-70.0); Platelet Count 183 th/mm3 (150-450); Red Blood Count 4.06 mil/mm3 (4.00-5.30); Red Cell Distribution Width 12.7 % (11.6-17.2); White Blood Count 14.9 th/mm3 (4.0-11.0)
[2017-12-18 05:16] LABS: Albumin 2.6 g/dL (3.4-5.0); Calcium 7.7 mg/dL (8.5-10.1); Magnesium 1.8 mg/dL (1.5-2.5); Phosphorus 1.7 mg/dL (2.5-4.9); Potassium 3.2 meq/L (3.5-5.1)
--- NOTE | 2017-12-18 09:54 | P.CONID ---
History of Present Illness Service: Infectious disease Consult date: 12/18/17 Requesting Physician: Roni Melchor Reason for Consult: Evaluate patient with gram-negative bacteremia Primary Care Provider: UNKNOWN History of Present Illness: Patient seen and examined. Records reviewed. Patient is a 28-year-old female, with no significant past medical history, presented to the hospital for further evaluation of lethargy. Patient apparently has been having fevers and chills for two days. She was also have some vague abdominal discomfort. On day of admission she was noted to be lethargic, so she was brought into the hospital for further evaluation and treatment. Patient's mental status is back to baseline. She continues to have intermittent fevers. Her urinalysis on admission shows pyuria, and 1 of the 2 blood cultures on admission is growing E. coli. Her urine culture is growing E. coli. CT of the abdomen and pelvis was done without contrast and did not show any significant abnormality but it was a noncontrast CT. She denies any dysuria, hesitancy. Since admission she has had some frequency. She is also experiencing bilateral flank pain, worse on the left than on the right. No nausea or vomiting. No diarrhea. Infectious disease consultation has been requested to assist with evaluation and treatment. Review of Systems Constitutional: Reports chills, Reports fever(s), Reports headache(s), Denies malaise Eyes: Denies discharge, Denies itchy eyes Ears, Nose, Mouth, and Throat: Denies difficulty swallowing, Denies facial pain , Denies nasal congestion, Denies pain with swallowing, Denies post nasal drip, Denies sore throat Cardiovascular: Denies chest pain, Denies shortness of breath Respiratory: Denies chest congestion, Denies cough, Denies shortness of breath Gastrointestinal: Reports constipation, Denies nausea, Denies pain with swallowing, Denies vomiting Genitourinary: Reports side pain, Denies blood in urine, Denies difficulty starting urination, Denies difficulty urinating, Denies genital lesions, Denies painful intercourse, Denies painful urination, Denies urinary incontinence, Denies urinary urgency, Denies vaginal discharge Musculoskeletal: Denies joint pain, Denies joint swelling, Denies neck pain Skin/Breast: Denies rash, Denies sores Neurologic: Denies localized weakness PMFSH - History History Provided By: Patient - Medical History Medical History: Medical History (Last Reviewed 12/18/17 @ 09:51 by Miri Alston MD) Patient denies medical problems - Surgical History Surgical History: Surgical History (Last Reviewed 12/18/17 @ 09:51 by Miri Alston MD) No significant past surgical history - Family History Family History: Family History (Last Updated 12/16/17 @ 21:23 by LAY Coronel) Other Family history normal - Tobacco History Smoking Status: Never smoker - Alcohol History How Often Do You Have a Drink Containing Alcohol: Never - Substance Use History Substance History: No History of Abuse - Travel History Recent Travel in the [place] Within the Last 8 Weeks: No Recent Travel Out of the Country Within the Last 8 Weeks: No - Immunization History Tetanus Immunization: Unsure Medications and Allergies Active Medications: Active Medications Acetaminophen (Tylenol) 650 mg PO Q4H PRN PRN Reason: Temp > 100.4 Last Admin: 12/18/17 03:01 Dose: 650 mg Sodium Chloride (Ns Inj) 1,000 mls @ 0 mls/hr IV.SIG .Q0M CORRINE Last Infusion: 12/16/17 20:00 Dose: Infused Sodium Chloride (Ns Inj) 800 mls @ 0 mls/hr IV.SIG .Q0M CORRINE Last Infusion: 12/16/17 20:30 Dose: Infused Sodium Chloride (Ns Inj) 1,000 mls @ 100 mls/hr IV.CONT .Q10H CORRINE Last Admin: 12/18/17 03:03 Dose: 100 mls/hr Piperacillin/Tazobactam/Dextrose (Zosyn 3.375 Gm Premix) 50 mls @ 100 mls/hr IV.SIG Q6H CORRINE Last Admin: 12/18/17 08:36 Dose: 100 mls/hr Potassium Phosphate 15 mmol/ (Sodium Chloride) 155 mls @ 38.75 mls/hr IV.SIG ONCE ONE Stop: 12/18/17 13:59 Ondansetron HCl (Zofran Inj) 4 mg IV.PUSH Q6H PRN PRN Reason: NAUSEA OR VOMITING Allergies Allergy/AdvReac Type Severity Reaction Status Date / Time No Known Allergies Allergy Unverified 12/16/17 18:37 Home Medications Medication Instructions Recorded Confirmed Type No Known Home Medications 12/16/17 12/16/17 History Exam Vital signs: Vital Signs 12/17/17 12:00 12/17/17 12:56 12/17/17 16:00 Temperature 101.8 F H 102.9 F H 98.9 F Pulse Rate 126 H 118 H 98 H Respiratory Rate 16 16 Blood Pressure 101/64 103/61 Pulse Oximetry 98 12/17/17 20:00 12/17/17 23:00 12/18/17 00:00 Temperature 99.3 F 98.8 F Pulse Rate 124 H 101 H 98 H Respiratory Rate 14 Blood Pressure 106/63 104/64 Pulse Oximetry 97 98 12/18/17 04:00 12/18/17 08:00 Temperature 101.5 F H 98.7 F Pulse Rate 128 H 102 H Respiratory Rate 18 Blood Pressure 102/61 102/68 Pulse Oximetry 97 98 Intake & Output 12/17/17 12/18/17 12/18/17 18:59 06:59 18:59 Intake Total 2850 / 2850 1800 / 1800 Balance 2850 / 2850 1800 / 1800 Weight 60 kg Intake: IV 2150 / 2150 1100 / 1100 NS Inj 1,000 ML @ 100 mls/hr IV 1000 / 1000 1000 / 1000 .CONT .Q10H CORRINE Rx#:[id number] Zosyn 3.375 GM Premix 50 ML @ 50 / 50 100 / 100 100 mls/hr IV.SIG Q6H CORRINE Rx#: [id number] NS Inj 1,000 ML @ Wide Open IV. 1000 / 1000 SIG BOLUS ONE Rx#:[id number] Rocephin Inj 1,000 MG In NS Inj 100 / 100 100 ML @ 200 mls/hr IV.SIG Q24H CORRINE Rx#:[id number] Oral 700 / 700 700 / 700 Other: # Voids 5 6 Date of Last Bowel Movement 12/16/17 12/16/17 # Bowel Movements 0 Narrative: Physical Examination GENERAL: Patient is a well-nourished, well-developed female, awake and alert , not in respiratory distress. She does not look toxic appearing SKIN: Warm and dry. No generalized rash, no ecchymoses and no evidence of embolic lesions. HEAD: Atraumatic. Normocephalic. No temporal wasting, or tenderness. EYES: [place] conjunctiva. No petechia or hemorrhage. Pupils equal, round and reactive to light. Extraocular movements full and intact. No scleral icterus. No injection or drainage. EARS, NOSE AND THROAT: Nose without bleeding or purulent nasal discharge. No sinus tenderness. Mucous membranes pink and moist. No oral lesions noted. No exudate. No oral thrush. NECK: Trachea midline. Supple and not tender, no meningeal signs CARDIOVASCULAR: Regular rate and rhythm. No murmurs, rubs or gallops heard RESPIRATORY: Clear to auscultation. Breath sounds equal bilaterally. No rales , wheezing or rhonchi ABDOMEN: Soft, non-tender, nondistended. Bowel sounds present and normoactive. No guarding. No rebound. No organomegaly. BACK: No spine tenderness, has L CVA tenderness EXTREMITIES: No clubbing, cyanosis, or edema.No joint effusion, has good ROM. No calf tenderness. Well perfused and warm. NEUROLOGICAL: Awake and alert. Cranial nerves grossly intact. Motor grossly within normal limits. PSYCHIATRIC: Normal affect, calm and cooperative. LINE: No evidence of infection Results - Labs CBC & Chem 7: 12/18/17 04:21 12/18/17 04:21 Labs: Laboratory Results - last 24 hr 12/16/17 12/16/17 12/18/17 18:45 18:45 04:21 WBC 14.9 H RBC 4.06 Hgb 11.3 L Hct 34.9 L MCV 85.9 MCH 27.8 MCHC 32.4 RDW 12.7 Plt Count 183 MPV 8.3 Neut % (Auto) 75.5 H Lymph % (Auto) 13.7 [place] % (Auto) 10.5 H Eos % (Auto) 0.0 Baso % (Auto) 0.3 Neut # (Auto) 11.3 H Lymph # (Auto) 2.1 [place] # (Auto) 1.6 H Eos # (Auto) 0.0 Baso # (Auto) 0.0 WBC Differential . Differential Comment Auto diff final Sodium Potassium Chloride Carbon Dioxide Anion Gap BUN Creatinine Estimated GFR Random Glucose Calcium Phosphorus Magnesium Albumin Urine Color Yellow Urine Clarity Cloudy H Urine pH 5.0 Ur Specific [place] 1.016 Urine Protein 100 H Urine Glucose (UA) Negative Urine Ketones Negative Urine Occult Blood Moderate H Urine Nitrate Positive H Urine Bilirubin Negative Urine Urobilinogen 2.0 H Ur Leukocyte Esterase Moderate H Urine RBC 2 Urine WBC 110 H Urine WBC Clumps Rare H Ur Squamous Epith Cells 1 Urine Bacteria Many H Urine Mucus Few H Micro UA Comment Cath-culture ind Urine Culture Comments Cath-cult indicated Chlam trachomat DNA PCR Cancelled N.gonorrhoeae DNA (PCR) Cancelled 12/18/17 04:21 WBC RBC Hgb Hct MCV MCH MCHC RDW Plt Count MPV Neut % (Auto) Lymph % (Auto) [place] % (Auto) Eos % (Auto) Baso % (Auto) Neut # (Auto) Lymph # (Auto) [place] # (Auto) Eos # (Auto) Baso # (Auto) WBC Differential Differential Comment Sodium 141 Potassium 3.2 L Chloride 109 H Carbon Dioxide 21.0 Anion Gap 11 BUN 7 Creatinine 0.89 Estimated GFR 76 L Random Glucose 111 H Calcium 7.7 L Phosphorus 1.7 L Magnesium 1.8 Albumin 2.6 L D Urine Color Urine Clarity Urine pH Ur Specific [place] Urine Protein Urine Glucose (UA) Urine Ketones Urine Occult Blood Urine Nitrate Urine Bilirubin Urine Urobilinogen Ur Leukocyte Esterase Urine RBC Urine WBC Urine WBC Clumps Ur Squamous Epith Cells Urine Bacteria Urine Mucus Micro UA Comment Urine Culture Comments Chlam trachomat DNA PCR N.gonorrhoeae DNA (PCR) Assessment and Plan - Plan Impression E coli sepsis due to UTI - still with fevers, ?complicated UTI Lethargy due to sepsis, resolved Recommendation Repeat 2 BC today Repeat Ua and C/S CT A/P with IV contrast to better evaluate Continue Zosyn Follow C/S and adjust Abx Follow temps Monitor progress Will determine course of Abx once work-up is completed I will follow along with you Thank you for this consultation Explained plan to the patient I will follow along with you
[2017-12-18] MEDS: Sod Chloride 0.9% Inj 1,000 ML IV.SIG SCH ×3 (09:57→23:21)
[2017-12-18] MEDS ORDERED: Potassium Phosphate Inj 15 MMOL in Sodium Chlor 0.9% Inj 150 ML IV.SIG ONE (10:00)
[2017-12-18] MEDS ORDERED: Diatrizoate Meglum/Diatrizoate Sod Liq 9 ML UDC PO ONE (10:55)
--- NOTE | 2017-12-18 12:09 | P.PNIM ---
Subjective Interval history: Patient says she is feeling much better today. Denies any chest pain shortness of breath. Denies nausea vomiting. Still with left flank pain, slightly improved. Denies any dysuria. Physical Exam Vital signs: Vital Signs 12/17/17 12:56 12/17/17 16:00 12/17/17 20:00 Temperature 102.9 F H 98.9 F 99.3 F Pulse Rate 118 H 98 H 124 H Respiratory Rate 16 14 Blood Pressure 103/61 106/63 Pulse Oximetry 98 97 12/17/17 23:00 12/18/17 00:00 12/18/17 04:00 Temperature 98.8 F 101.5 F H Pulse Rate 101 H 98 H 128 H Respiratory Rate Blood Pressure 104/64 102/61 Pulse Oximetry 98 97 12/18/17 08:00 12/18/17 11:00 Temperature 98.7 F 100.0 F H Pulse Rate 102 H 111 H Respiratory Rate 18 18 Blood Pressure 102/68 117/68 Pulse Oximetry 98 99 Intake & Output 12/17/17 12/18/17 12/18/17 18:59 06:59 18:59 Intake Total 2850 / 2850 1800 / 1800 1770 / 1770 Balance 2850 / 2850 1800 / 1800 1770 / 1770 Weight 60 kg Intake: IV 2150 / 2150 1100 / 1100 1050 / 1050 NS Inj 1,000 ML @ 100 mls/hr IV 1000 / 1000 1000 / 1000 .CONT .Q10H CORRINE Rx#:[id number] Zosyn 3.375 GM Premix 50 ML @ 50 / 50 100 / 100 50 / 50 100 mls/hr IV.SIG Q6H CORRINE Rx#: [id number] NS Inj 1,000 ML @ Wide Open IV. 1000 / 1000 1000 / 1000 SIG .Q0M CORRINE Rx#:[id number] Rocephin Inj 1,000 MG In NS Inj 100 / 100 100 ML @ 200 mls/hr IV.SIG Q24H CORRINE Rx#:[id number] Oral 700 / 700 700 / 700 720 / 720 Other: # Voids 5 6 Date of Last Bowel Movement 12/16/17 12/18/17 # Bowel Movements 0 1 Narrative: GENERAL: Patient sitting up in bed. Appears comfortable. Alert and oriented 3. SKIN: Warm and dry. HEAD: Normocephalic. EYES: No scleral icterus. No injection or drainage. NECK: Supple, trachea midline. No JVD. No meningismal signs. CARDIOVASCULAR: Regular rate and rhythm without murmurs, gallops, or rubs. RESPIRATORY: Breath sounds equal bilaterally. No accessory muscle use. GASTROINTESTINAL: Abdomen soft, non-tender, nondistended. MUSCULOSKELETAL: No cyanosis, or edema. BACK: Nontender without obvious deformity. Positive left CVA tenderness, slightly improved from yesterday. - Urinary Catheter Management Straight Cath placed during this visit: yes Reason for continuing: Not indwelling catheter Insertion date: 12/16/17 Insertion time: 18:45 Results - Labs CBC & Chem 7: 12/18/17 04:21 12/18/17 04:21 Laboratory Results - last 24 hr 12/16/17 12/16/17 12/18/17 18:45 18:45 04:21 WBC 14.9 H RBC 4.06 Hgb 11.3 L Hct 34.9 L MCV 85.9 MCH 27.8 MCHC 32.4 RDW 12.7 Plt Count 183 MPV 8.3 Neut % (Auto) 75.5 H Lymph % (Auto) 13.7 [place] % (Auto) 10.5 H Eos % (Auto) 0.0 Baso % (Auto) 0.3 Neut # (Auto) 11.3 H Lymph # (Auto) 2.1 [place] # (Auto) 1.6 H Eos # (Auto) 0.0 Baso # (Auto) 0.0 WBC Differential . Differential Comment Auto diff final Sodium Potassium Chloride Carbon Dioxide Anion Gap BUN Creatinine Estimated GFR Random Glucose Calcium Phosphorus Magnesium Albumin Urine Color Yellow Urine Clarity Cloudy H Urine pH 5.0 Ur Specific [place] 1.016 Urine Protein 100 H Urine Glucose (UA) Negative Urine Ketones Negative Urine Occult Blood Moderate H Urine Nitrate Positive H Urine Bilirubin Negative Urine Urobilinogen 2.0 H Ur Leukocyte Esterase Moderate H Urine RBC 2 Urine WBC 110 H Urine WBC Clumps Rare H Ur Squamous Epith Cells 1 Urine Bacteria Many H Urine Mucus Few H Micro UA Comment Cath-culture ind Urine Culture Comments Cath-cult indicated Chlam trachomat DNA PCR Cancelled N.gonorrhoeae DNA (PCR) Cancelled 12/18/17 04:21 WBC RBC Hgb Hct MCV MCH MCHC RDW Plt Count MPV Neut % (Auto) Lymph % (Auto) [place] % (Auto) Eos % (Auto) Baso % (Auto) Neut # (Auto) Lymph # (Auto) [place] # (Auto) Eos # (Auto) Baso # (Auto) WBC Differential Differential Comment Sodium 141 Potassium 3.2 L Chloride 109 H Carbon Dioxide 21.0 Anion Gap 11 BUN 7 Creatinine 0.89 Estimated GFR 76 L Random Glucose 111 H Calcium 7.7 L Phosphorus 1.7 L Magnesium 1.8 Albumin 2.6 L D Urine Color Urine Clarity Urine pH Ur Specific [place] Urine Protein Urine Glucose (UA) Urine Ketones Urine Occult Blood Urine Nitrate Urine Bilirubin Urine Urobilinogen Ur Leukocyte Esterase Urine RBC Urine WBC Urine WBC Clumps Ur Squamous Epith Cells Urine Bacteria Urine Mucus Micro UA Comment Urine Culture Comments Chlam trachomat DNA PCR N.gonorrhoeae DNA (PCR) Microbiology 12/16/17 18:45 Blood - Peripheral Aerobic Blood Culture - Preliminary No growth in 2 days 12/16/17 18:45 Blood - Peripheral Anaerobic Blood Culture - Preliminary Escherichia coli 12/16/17 18:40 Blood - Peripheral Aerobic Blood Culture - Preliminary No growth in 2 days 12/16/17 18:40 Blood - Peripheral Anaerobic Blood Culture - Preliminary No growth in 2 days 12/16/17 18:45 Catheterized Urine Urine Culture - Final Escherichia coli Assessment and Plan - Plan ///Severe sepsis on admission = pyelonephritis, WBC 23.3, temp 2.6, heart rate 129, lactic acid 1.2, acute kidney injury likely E. coli Abnormal UA shows moderate leukocyte esterase, positive nitrates blood elevated protein and increased bacteria -Urine culture pending -Rocephin IV daily -CBC in AM -Tylenol as needed = 12/17. With repeat fever, tachycardia. Will IV fluid bolus, switch antibiotics to Zosyn. = 12/18. Improving. Low-grade fever of 100.0 today. Repeat cultures pending. Infectious disease following. Repeat CT abdomen pelvis with contrast. //Acute kidney injury, creatinine 1.2 -Continue IVF as above -Trend creatinine -Avoid nephrotoxins = Resolved 0.8 creatinine with IV fluids. Continue to monitor. //Hypocalcemia. Resolved after placement. Continue to monitor. //Hypokalemia. Potassium 3.2. Place. //Hypophosphatemia. Phosphorus 1.7. Place. Monitor. DVT prophylaxis: SCDs Discharge Planning: Pending improvement. ID following. Will need ID clearance.
[2017-12-18 12:28] LABS: Bilirubin,Urine Negative (Negative); Clarity,Urine Clear (Clear); Color,Urine Straw (Yellw/Straw); Glucose,Urine (UA) Negative (Negative); Leukocyte Esterase,Urine Negative (Negative); Mucus,Urine Few /lpf (Occasional); Nitrite,Urine Negative (Negative); Specific Gravity,Urine 1.011 (1.002-1.035); Squamous Epithelial Cell,Urine 1 /hpf (0-5)
--- NOTE | 2017-12-18 18:12 | CT ---
EXAM DATE: 12/18/2017 6:00 PM EDT AGE/SEX: 27 years / Female INDICATIONS: Abdominal pain and sepsis. Evaluate for pyelonephritis. CLINICAL DATA: This is the patient's initial encounter. Patient reports that signs and symptoms have been present for 1 day and indicates a pain score of 4/10. MEDICAL/SURGICAL HISTORY: Sepsis. Toxic metabolic encephalopathy. None. ORAL CONTRAST: Prescribed oral contrast ingested. RADIATION DOSE: 6.64 CTDI (mGy) COMPARISON: [facility], CT ABDOMEN & PELVIS W/O CONTRAST, 12/16/2017. . TECHNIQUE: Multiple contiguous axial images were obtained through the abdomen and pelvis following b olus infusion of 95 ml Omnipaque 350 (iohexol) nonionic water-soluble contrast as a single exam dos e. Prescribed oral contrast ingested. Using automated exposure control and adjustment of the mA and/ or kV according to patient size, radiation dose was kept as low as reasonably achievable to obtain op timal diagnostic quality images. DICOM format image data is available electronically for review and comparison. FINDINGS: Lower Lungs: The visualized lower lungs are clear. Liver: The liver has a homogeneous density without space-occupying lesion. There is no dilation of th e biliary tree. Spleen: Homogeneous density without enlargement. Pancreas: Unremarkable without mass or calcification. Kidneys: The kidneys are normal in size and shape. On the left. 2 subtle areas of decreased enhancem ent involving the cortex. The larger involves the medial upper pole and measures up to approximately 1.7 cm. The second is smaller involves the lateral lower pole. On the right there is also a smaller s ubtle 11 mm area of decreased attenuation involving the lateral mid kidney. There are no renal calcul i or hydronephrosis. There is no surrounding inflammatory change. Adrenal Glands: Unremarkable. Aorta: The aorta and proximal iliac vessels are grossly unremarkable without aneurysmal dilation. Bowel/Mesentery: The bowel loops are grossly unremarkable. The cecum and sigmoid colon have a normal configuration. Abdominal Wall: Intact. Retroperitoneum: No evidence of adenopathy in the retrocrural, para-aortic, or deep pelvic regions. Bladder: Contours are smooth. Reproductive Organs: No abnormal masses or calcifications seen. Inguinal: The inguinal region is unremarkable without evidence of adenopathy. Bony Structures: Unremarkable. CONCLUSION: 1. Subtle areas of decreased enhancement involving the renal cortex left greater than right which ar e nonspecific but could represent pyelonephritis. There are no renal calculi or obstruction. Electronically signed by: Cisco Ordonez MD 12/18/2017 6:11 PM EDT
[2017-12-19] MEDS: Piperacil/Tazo 3.375 GM Premix 50 ML IV.SIG SCH ×4 (02:42→20:41)
[2017-12-19] MEDS: Acetaminophen 325 MG Tablet PO PRN (09:10)
[2017-12-19] MEDS: Sod Chloride 0.9% Inj 1,000 ML IV.CONT SCH ×2 (10:19→20:41)
--- NOTE | 2017-12-19 17:57 | P.PNIM ---
Subjective Interval history: Patient seen earlier today. She reports she is feeling much better today. Still have some flank pain. Afebrile. Inquired about when she will be able to go home. Physical Exam Vital signs: Vital Signs 12/18/17 18:00 12/18/17 20:00 12/18/17 21:00 Temperature 98.4 F Pulse Rate 92 H 99 H 94 H Respiratory Rate 16 Blood Pressure 119/78 Pulse Oximetry 98 12/18/17 22:00 12/18/17 23:00 12/19/17 00:00 Temperature Pulse Rate 100 H 84 78 Respiratory Rate Blood Pressure Pulse Oximetry 12/19/17 01:00 12/19/17 02:00 12/19/17 03:00 Temperature 97.7 F Pulse Rate 86 86 102 H Respiratory Rate 16 Blood Pressure 106/73 Pulse Oximetry 99 12/19/17 04:00 12/19/17 05:00 12/19/17 06:00 Temperature Pulse Rate 92 H 94 H 102 H Respiratory Rate Blood Pressure Pulse Oximetry 12/19/17 07:00 12/19/17 08:00 12/19/17 09:00 Temperature 98.2 F Pulse Rate 85 88 94 H Respiratory Rate 18 Blood Pressure 106/70 Pulse Oximetry 99 12/19/17 10:00 12/19/17 11:00 12/19/17 13:00 Temperature 98.2 F Pulse Rate 82 89 78 Respiratory Rate 18 Blood Pressure 110/70 Pulse Oximetry 99 12/19/17 14:00 12/19/17 15:00 12/19/17 16:00 Temperature 98.5 F Pulse Rate 82 84 80 Respiratory Rate 18 Blood Pressure 106/72 Pulse Oximetry 99 12/19/17 17:00 Temperature Pulse Rate 76 Respiratory Rate Blood Pressure Pulse Oximetry Intake & Output 12/18/17 12/19/17 12/19/17 18:59 06:59 18:59 Intake Total 3695 / 3695 2580 / 2580 1100 / 1100 Output Total 450 / 450 900 / 900 Balance 3245 / 3245 1680 / 1680 1100 / 1100 Weight 60.1 kg Intake: IV 2255 / 2255 2100 / 2100 1100 / 1100 NS Inj 1,000 ML @ 100 mls/hr IV 1000 / 1000 1000 / 1000 1000 / 1000 .CONT .Q10H [facility] Rx#:[id number] Zosyn 3.375 GM Premix 50 ML @ 100 / 100 100 / 100 100 / 100 100 mls/hr IV.SIG Q6H [facility] Rx#: [id number] Potassium Phosphate Inj 15 MMOL 155 / 155 In NS Inj 150 ML @ 38.75 mls/ hr IV.SIG ONCE ONE Rx#:[id number] NS Inj 1,000 ML @ Wide Open IV. 1000 / 1000 1000 / 1000 SIG .Q0M [facility] Rx#:[id number] Oral 1440 / 1440 480 / 480 Output: Urine 450 / 450 900 / 900 Other: # Voids 4 Date of Last Bowel Movement 12/18/17 12/19/17 12/19/17 # Bowel Movements 4 1 Narrative: GENERAL: Patient sitting up in bed. Appears comfortable. CARDIOVASCULAR: Regular rate and rhythm without murmurs, gallops, or rubs. RESPIRATORY: Breath sounds equal bilaterally. No accessory muscle use. GASTROINTESTINAL: Abdomen soft, non-tender, nondistended. MUSCULOSKELETAL: No cyanosis, or edema. BACK: Nontender without obvious deformity. Positive left CVA tenderness, improved. The patient. - Urinary Catheter Management Straight Cath placed during this visit: yes Reason for continuing: Not indwelling catheter Insertion date: 12/16/17 Insertion time: 18:45 Results - Labs CBC & Chem 7: 12/18/17 04:21 12/18/17 04:21 Microbiology 12/16/17 18:45 Blood - Peripheral Aerobic Blood Culture - Preliminary No growth in 3 days 12/16/17 18:45 Blood - Peripheral Anaerobic Blood Culture - Final Escherichia coli 12/18/17 12:01 Blood - Peripheral Aerobic Blood Culture - Preliminary No growth in 1 day 12/18/17 12:01 Blood - Peripheral Anaerobic Blood Culture - Preliminary No growth in 1 day 12/18/17 12:06 Blood - Peripheral Aerobic Blood Culture - Preliminary No growth in 1 day 12/18/17 12:06 Blood - Peripheral Anaerobic Blood Culture - Preliminary No growth in 1 day 12/18/17 10:55 Blood - Peripheral Aerobic Blood Culture - Preliminary No growth in 1 day 12/18/17 10:55 Blood - Peripheral Anaerobic Blood Culture - Preliminary No growth in 1 day 12/18/17 11:03 Blood - Peripheral Aerobic Blood Culture - Preliminary No growth in 1 day 12/18/17 11:03 Blood - Peripheral Anaerobic Blood Culture - Preliminary No growth in 1 day 12/16/17 18:40 Blood - Peripheral Aerobic Blood Culture - Preliminary No growth in 3 days 12/16/17 18:40 Blood - Peripheral Anaerobic Blood Culture - Preliminary No growth in 3 days - Imaging Impressions Abdomen/Pelvis CT 12/18/17 00:00 CONCLUSION: 1. Subtle areas of decreased enhancement involving the renal cortex left greater than right which are nonspecific but could represent pyelonephritis. There are no renal calculi or obstruction. Assessment and Plan - Plan 27-year-old female with: Severe sepsis on admission E. coli bacteremia, 1/4 bottles pyelonephritis, WBC 23.3, temp 2.6, heart rate 129, lactic acid 1.2, acute kidney injury secondary to E. coli Infectious disease following. cont zosyn. Repeat CT abdomen pelvis negative for obstruction but there are some subtle enhancement consistent with pyelonephritis. Follow repeat cultures. So far negative. Acute kidney injury, creatinine 1.2 on presentation Resolved 0.8 creatinine with IV fluids. Continue to monitor. Hypocalcemia. Resolved after placement. Continue to monitor. Hypokalemia. Replace and monitor. Hypophosphatemia. Replace and monitor. DVT prophylaxis: SCDs. Patient is ambulatory Discharge Planning: Will need clearance from ID once course of antibiotics determined.
[2017-12-20] MEDS: Piperacil/Tazo 3.375 GM Premix 50 ML IV.SIG SCH ×2 (02:10→07:59)
[2017-12-20 06:04] LABS: Hemoglobin 11.5 gm/dL (11.6-15.3); Mean Corpuscular HGB Conc 31.9 % (32.0-36.0); Mean Corpuscular Hemoglobin 27.8 pg (27.0-34.0); Platelet Count 246 th/mm3 (150-450); Red Blood Count 4.14 mil/mm3 (4.00-5.30); Red Cell Distribution Width 13.1 % (11.6-17.2); White Blood Count 8.4 th/mm3 (4.0-11.0)
[2017-12-20 06:08] LABS: Anion Gap 11 meq/L (5-15); Blood Urea Nitrogen 7 mg/dL (7-18); Calcium 8.4 mg/dL (8.5-10.1); Carbon Dioxide 21.4 meq/L (21.0-32.0); Chloride 110 meq/L (98-107); Glomerular Filtration Rate Greater Than 89 mL/min (>89); Glucose,Random 90 mg/dL (74-106); Potassium 3.6 meq/L (3.5-5.1); Sodium 142 meq/L (136-145)
[2017-12-20] MEDS: Sod Chloride 0.9% Inj 1,000 ML IV.CONT SCH (06:09)
[2017-12-20] MEDS ORDERED: levoFLOXacin Liq 25 MG/ML 100 ML Bottle PO SCH (12:00)
--- NOTE | 2017-12-20 12:11 | P.DS ---
Date of admission: 12/16/17 20:14 Primary care physician: UNKNOWN Brief History from admission: HPI from the admitting physician: 28 y/o female with no medical history presented to the ED with complaints of lower abdominal pain and lethargy. Mom is at bedside who is a CVICU Nurse here at [place]. Patient states she has been having fevers and chills for 2 days and today she just became more lethargic. She complains of sharp lower abdominal pain with radiation to her back, no nausea or vomiting noted. Denies dysuria. Still feverish and having chills on exam. Update on the day of discharge: Patient reports she is feeling well. Denies fever or chills. Eager to go home. DS: Diagnosis - Discharge Diagnosis (1) Pyelonephritis Status: Acute (2) Sepsis Status: Acute (3) Toxic metabolic encephalopathy Status: Acute DS: Medications - Discharge Medications Prescriptions: levofloxacin [Levaquin] 750 mg PO DAILY #12 tab DS: Summary Hospital Course: 27-year-old female admitted and treated for the following: Severe sepsis on admission E. coli bacteremia, 1/4 bottles pyelonephritis, WBC 23.3, temp 2.6, heart rate 129, lactic acid 1.2, acute kidney injury secondary to E. coli Infectious disease following. cont zosyn. Repeat CT abdomen pelvis negative for obstruction but there are some subtle enhancement consistent with pyelonephritis. Repeat blood cultures so far negative. Discussed the case with infectious disease. The patient is discharged on Levaquin 750 mg daily for an additional 12 days to complete the course of treatment for transient bacteremia. Acute kidney injury, creatinine 1.2 on presentation Resolved 0.8 creatinine with IV fluids. Hypocalcemia. Resolved after placement. Hypokalemia. Replaced Hypophosphatemia. Replaced - Time Spent with Patient Total time spent providing and/or coordinating discharge services: Less than 30 minutes - Quality: VTE Deep Vein Thrombosis/Pulmonary Embolism Present on Admission: No Exam Vital signs: Vital Signs 12/19/17 13:00 12/19/17 14:00 12/19/17 15:00 Temperature 98.5 F Pulse Rate 78 82 84 Respiratory Rate 18 Blood Pressure 106/72 Pulse Oximetry 99 12/19/17 16:00 12/19/17 17:00 12/19/17 18:00 Temperature Pulse Rate 80 76 76 Respiratory Rate Blood Pressure Pulse Oximetry 08/18/18 19:37 12/19/17 20:00 12/19/17 21:00 Temperature 98.0 F Pulse Rate 87 87 92 H Respiratory Rate 18 Blood Pressure 125/81 Pulse Oximetry 99 12/19/17 22:00 12/19/17 23:00 12/20/17 00:00 Temperature Pulse Rate 90 86 72 Respiratory Rate Blood Pressure Pulse Oximetry 12/20/17 01:00 12/20/17 02:00 12/20/17 02:13 Temperature 98.7 F Pulse Rate 68 76 81 Respiratory Rate 16 Blood Pressure 97/66 L Pulse Oximetry 99 12/20/17 03:00 12/20/17 04:00 12/20/17 05:00 Temperature Pulse Rate 60 68 68 Respiratory Rate Blood Pressure Pulse Oximetry 12/20/17 06:00 12/20/17 08:00 Temperature 98.7 F Pulse Rate 72 82 Respiratory Rate 18 Blood Pressure 105/64 Pulse Oximetry 100 Intake & Output 12/19/17 12/20/17 12/20/17 18:59 06:59 18:59 Intake Total 1999 / 1999 2340 / 2340 50 / 50 Output Total 1250 / 1250 900 / 900 Balance 750 / 750 1440 / 1440 50 / 50 Weight 58.8 kg Intake: IV 1100 / 1100 2100 / 2100 50 / 50 NS Inj 1,000 ML @ 100 mls/hr IV 1000 / 1000 1999 / 1999 .CONT .Q10H [facility] Rx#:[id number] Zosyn 3.375 GM Premix 50 ML @ 100 / 100 100 / 100 50 / 50 100 mls/hr IV.SIG Q6H [facility] Rx#: [id number] Oral 900 / 900 240 / 240 Output: Urine 1250 / 1250 900 / 900 Other: Date of Last Bowel Movement 12/19/17 12/19/17 Results Procedures completed during hospitalization: None Labs on day of discharge: Labs from last 24 hours 12/20/17 12/20/17 05:15 05:15 WBC 8.4 RBC 4.14 Hgb 11.5 L Hct 36.0 MCV 87.0 MCH 27.8 MCHC 31.9 L RDW 13.1 Plt Count 246 D MPV 8.0 Sodium 142 Potassium 3.6 Chloride 110 H Carbon Dioxide 21.4 Anion Gap 11 BUN 7 Creatinine 0.75 Estimated GFR Greater than 89 Random Glucose 90 Calcium 8.4 L Preliminary micro results at discharge 12/18/17 12:01 Aerobic Blood Culture - Preliminary Blood - Peripheral No growth in 2 days Anaerobic Blood Culture - Preliminary No growth in 2 days 12/18/17 12:06 Aerobic Blood Culture - Preliminary Blood - Peripheral No growth in 2 days Anaerobic Blood Culture - Preliminary No growth in 2 days 12/18/17 10:55 Aerobic Blood Culture - Preliminary Blood - Peripheral No growth in 2 days Anaerobic Blood Culture - Preliminary No growth in 2 days 12/18/17 11:03 Aerobic Blood Culture - Preliminary Blood - Peripheral No growth in 2 days Anaerobic Blood Culture - Preliminary No growth in 2 days 12/16/17 18:45 Aerobic Blood Culture - Preliminary Blood - Peripheral No growth in 4 days 12/16/17 18:40 Aerobic Blood Culture - Preliminary Blood - Peripheral No growth in 4 days Anaerobic Blood Culture - Preliminary No growth in 4 days - Impressions ITS Impressions Chest X-Ray 12/16/17 18:37 CONCLUSION: Under aerated without obvious consolidation or infiltrate. Head CT 12/16/17 18:37 CONCLUSION: 1. Negative for acute process. 2. Inflammatory process such as encephalitis and meningitis cannot be excluded. . Abdomen/Pelvis CT 12/18/17 00:00 CONCLUSION: 1. Subtle areas of decreased enhancement involving the renal cortex left greater than right which are nonspecific but could represent pyelonephritis. There are no renal calculi or obstruction. Discharge Plan - Discharge Disposition Patient Disposition: 01 Discharge Home - Discharge Condition Condition: Good - Discharge Order Discharge Orders: Discharge Order (Routine); Ordered 12/20/17 Ordered By: Bryan Stockton - Physicians Team Primary Care Provider: UNKNOWN, Attending Provider: Bryan Stockton Other Providers: Miri Alston MD
== END 2017-12-20 13:17 | disposition home or self-care (01) ==
LOC: NEPC 18:26 → NEDA 20:14 → EDBD 20:14 → NEDA 21:23 → HCPC 21:53 → HCIS 12-18 10:25
PROVIDERS: ADMIT Family Medicine; ATTEND Family Medicine